=== PATIENT | female | born 1990 | race American Indian/Alaskan Native ===

== ENCOUNTER 2021-02-04 12:26 | Outpatient (CLI) | payer OTHER ==
[2021-02-04 12:51] VITALS: BP 106/75
[2021-02-04] MEDS ORDERED: LACTATED RINGERS 1,000 ML IV ONE (13:34)
--- NOTE | 2021-02-04 13:45 | Ultrasound Report ---
ULTRASOUND OB LIMITED ULTRASOUND OB BPP ULTRASOUND OB BPP EA ADD EXAM INDICATION: WELL BEING;NNST TWINS TECHNIQUE: Transabdominal ultrasound imaging. COMPARISON: None FINDINGS: BABY A breathing movement = 2 Gross body movement = 2 tone = 2 Qualitative amniotic fluid volume = 2 Total biophysical score = 8/8 Amniotic fluid index is within normal limits. Largest vertical pocket measures 5.1 cm. Presentation is cephalic. heart rate is 141 beats per minute. BABY B breathing movement = 2 Gross body movement = 2 tone = 2 Qualitative amniotic fluid volume = 2 Total biophysical score = 8/8 Amniotic fluid index is within normal limits. Largest vertical pocket measures 4.3 cm. Presentation is cephalic. heart rate is 135 beats per minute. IMPRESSION: biophysical profile equals 8/8 for each fetus. Signer Name: Joe Nugyễn Jr, MD Signed: 02/04/2021 1:40 PM Workstation Name: [id number]
[2021-02-04 14:36] LABS: Bilirubin,Urine NEG (Negative); Blood,Urine MOD (Negative); Color,Urine Yellow (Yellow); Protein,Urine <15 mg/dL mg/dL (Negative); Urobilinogen,Urine < 2.0 mg/dL (<2.0)
== END 2021-02-04 14:00 | disposition home or self-care (01) ==
LOC: TRG 12:26 → APU 12:28 → TRG 14:00
PROVIDERS: ATTEND Obstetrics & Gynecology
DX: O30.043 Twin pregnancy, dichorionic/diamniotic, third trimester (principal); Z3A.33 33 weeks gestation of pregnancy
CPT/HCPCS: 76815; 76819; 81001

== ENCOUNTER 2021-02-11 18:57 | Outpatient (CLI) | payer OTHER ==
[2021-02-11 19:24] VITALS: BP 137/63
[2021-02-11] MEDS ORDERED: LACTATED RINGERS 500 ML IV ONE (20:04)
--- NOTE | 2021-02-11 22:42 | Ultrasound Report ---
ULTRASOUND BIOPHYSICAL PROFILE INDICATION: well being. COMPARISON: 02/04/2021 FINDINGS: Twin A breathing movement = 2 Gross body movement = 2 tone = 2 Qualitative amniotic fluid volume = 2 Total biophysical score = /8 Heart rate: 128 bpm. lie: Cephalic, on the maternal left Twin B breathing movement = 2 Gross body movement = 2 tone = 2 Qualitative amniotic fluid volume = 2 Total biophysical score = /8 Heart rate: 138. lie: Transverse head left, on the maternal right IMPRESSION: Twin A biophysical profile = 01/11 Twin B biophysical profile = / Signer Name: Abilio Allen MD Signed: 02/11/2021 10:37 PM Workstation Name: [id number]
== END 2021-02-11 21:28 | disposition home or self-care (01) ==
LOC: TRG 18:57 → APU 18:59 → TRG 21:28
PROVIDERS: ATTEND Obstetrics & Gynecology
DX: O30.043 Twin pregnancy, dichorionic/diamniotic, third trimester (principal); Z3A.34 34 weeks gestation of pregnancy
CPT/HCPCS: 59025; 76819

== ENCOUNTER 2021-02-20 11:31 | Outpatient (CLI) | payer OTHER ==
[2021-02-20 12:19] VITALS: BP 122/88
[2021-02-20] MEDS ORDERED: LACTATED RINGERS 500 ML IV ONE (14:45)
--- NOTE | 2021-02-20 18:33 | Ultrasound Report ---
Limited OB Ultrasound Biophysical profile HISTORY: well being, twin gestation. TECHNIQUE: Grayscale and color imaging performed. COMPARISON: 02/11/2021 and 02/04/2021 FINDINGS: This is a twin . Fetus A is cephalic in presentation with overall EGA by ultrasound 34 weeks and 2 days compared to cl inically 36 weeks and 1 day. Estimated delivery date is 04/01/2021. Estimate of weight is 2258 g. Heart rate is 129 bpm. Largest vertical pocket ESMER is 4 cm. Fetus B is cephalic in presentation with overall EGA by ultrasound 34 weeks and 6 days compared to cl inically 36 weeks and 1 day. Estimated delivery date is 03/28/2021. Estimated weight is 2629 g. Heart rate is 145 bpm. Largest vertical pocket ESMER is 4 cm. On biophysical profile, each fetus received a score of 2 out of 2 for breathing, movement, posture/to ne, and ESMER. Total score was 8 out of 8 for each fetus. IMPRESSION: 1. Twin gestations as above. 2. Normal biophysical profiles for each fetus Signer Name: Cuco Sauceda MD Signed: 02/20/2021 6:29 PM Workstation Name: [id number]
--- NOTE | 2021-02-20 18:33 | Ultrasound Report ---
Limited OB Ultrasound Biophysical profile HISTORY: well being, twin gestation. TECHNIQUE: Grayscale and color imaging performed. COMPARISON: 02/11/2021 and 02/04/2021 FINDINGS: This is a twin . Fetus A is cephalic in presentation with overall EGA by ultrasound 34 weeks and 2 days compared to cl inically 36 weeks and 1 day. Estimated delivery date is 04/01/2021. Estimate of weight is 2258 g. Heart rate is 129 bpm. Largest vertical pocket ESMER is 4 cm. Fetus B is cephalic in presentation with overall EGA by ultrasound 34 weeks and 6 days compared to cl inically 36 weeks and 1 day. Estimated delivery date is 03/28/2021. Estimated weight is 2629 g. Heart rate is 145 bpm. Largest vertical pocket ESMER is 4 cm. On biophysical profile, each fetus received a score of 2 out of 2 for breathing, movement, posture/to ne, and ESEMR. Total score was 8 out of 8 for each fetus. IMPRESSION: 1. Twin gestations as above. 2. Normal biophysical profiles for each fetus Signer Name: Cuco Sauceda MD Signed: 02/20/2021 6:29 PM Workstation Name: [email or web address]
== END 2021-02-20 14:10 | disposition home or self-care (01) ==
LOC: TRG 11:31 → APU 11:32 → TRG 14:10
PROVIDERS: ATTEND Obstetrics & Gynecology
DX: O30.043 Twin pregnancy, dichorionic/diamniotic, third trimester (principal); Z3A.00 Weeks of gestation of pregnancy not specified
CPT/HCPCS: 59025; 76816; 76819

== ENCOUNTER 2021-02-27 10:24 | Outpatient (CLI) | payer OTHER ==
--- NOTE | 2021-02-27 13:41 | Ultrasound Report ---
ULTRASOUND OBSTETRIC LIMITED ULTRASOUND BIOPHYSICAL PROFILE INDICATION / CLINICAL INFORMATION: wellbeing. COMPARISON: None available. FINDINGS: BABY A: BREATHING MOVEMENT = 2 GROSS BODY MOVEMENT = 2 TONE = 2 QUALITATIVE AMNIOTIC FLUID VOLUME = 2 TOTAL BIOPHYSICAL SCORE = 8/8 AMNIOTIC FLUID INDEX (cm) = The largest vertical pocket measures 4.5 cm, which is normal. PRESENTATION: Cephalic. HEART RATE (beats per minute): 143 ADDITIONAL FINDINGS: None. BABY B: BREATHING MOVEMENT = 2 GROSS BODY MOVEMENT = 2 TONE = 2 QUALITATIVE AMNIOTIC FLUID VOLUME = 2 TOTAL BIOPHYSICAL SCORE = 8/8 AMNIOTIC FLUID INDEX (cm) = The largest vertical pocket measures 2.1 cm, which is at the lower limit of normal. PRESENTATION: Cephalic. HEART RATE (beats per minute): 151 ADDITIONAL FINDINGS: None. IMPRESSION: Live twin with biophysical profile score of 8/8. Signer Name: Kvng Lambert MD Signed: 02/27/2021 1:37 PM Workstation Name: [id number]
--- NOTE | 2021-02-27 13:44 | Ultrasound Report ---
US OB BPP wo non-stress INDICATION / CLINICAL INFORMATION: wellbeing. TECHNIQUE: Transabdominal. COMPARISON: None available. FINDINGS: Biophysical Profile: breathing movements: 2 movements:2 posture and tone:2 Qualitative amniotic fluid volume: 2 Heart rate 143 bpm. IMPRESSION: 1. Biophysical profile of fetus A is 8 of 8 Signer Name: Sotero Stein MD Signed: 02/27/2021 1:40 PM [facility]: [id number]
[2021-02-27 14:18] VITALS: BP 128/71
--- NOTE | 2021-02-27 18:25 | Ultrasound Report ---
US OB limited INDICATION: Bpp, ESMER. TECHNIQUE: Transabdominal. COMPARISON: None available. FINDINGS/IMPRESSION: There is a intrauterine twin . Fetus A: Position: Cephalic. heart rate 143 bpm. Largest pocket of amniotic fluid is 4.1 cm, which is normal. Fetus B: Position: Cephalic. heart rate 151 bpm. Largest pocket of amniotic fluid is 1.1 cm, which is low limits of normal. Signer Name: Sotero Stein MD Signed: 02/27/2021 6:20 PM Workstation Name: [id number]
== END 2021-02-27 14:00 | disposition home or self-care (01) ==
LOC: TRG 10:24 → APU 10:25 → TRG 14:00
PROVIDERS: ATTEND Student in an Organized Health Care Education/Training Program
DX: Z34.93 Encounter for supervision of normal pregnancy, unspecified, third trimester (principal); Z3A.37 37 weeks gestation of pregnancy
CPT/HCPCS: 59025; 76815; 76819

== ENCOUNTER 2021-03-06 11:50 | Inpatient (IN) | payer OTHER ==
--- NOTE | 2021-03-06 15:19 | Ultrasound Report ---
ULTRASOUND OBSTETRIC LIMITED ULTRASOUND BIOPHYSICAL PROFILE INDICATION / CLINICAL INFORMATION: TWIN GESTATION, WEEKLY BPP. COMPARISON: 02/27/2021 FINDINGS: BABY A: BREATHING MOVEMENT = 2 GROSS BODY MOVEMENT = 2 TONE = 2 QUALITATIVE AMNIOTIC FLUID VOLUME = 2 TOTAL BIOPHYSICAL SCORE = 8/8 AMNIOTIC FLUID INDEX (cm) = The largest vertical pocket measures 5.1 cm, which is normal. PRESENTATION: Cephalic. HEART RATE (beats per minute): 139 ADDITIONAL FINDINGS: None. BABY B: BREATHING MOVEMENT = 0 GROSS BODY MOVEMENT = 2 TONE = 2 QUALITATIVE AMNIOTIC FLUID VOLUME = 2 TOTAL BIOPHYSICAL SCORE = 6/8 AMNIOTIC FLUID INDEX (cm) = The largest vertical pocket measures 3.1 cm, which is within normal limi ts. PRESENTATION: Cephalic. HEART RATE (beats per minute): 134 ADDITIONAL FINDINGS: None. IMPRESSION: 1. Live twin . Biophysical profile score of 6/8 for "baby B" with limited breathing movement . Close clinical surveillance is recommended. 2. Biophysical profile score of 8/8 for "baby A". Signer Name: Arun Reaves MD Signed: 03/06/2021 3:14 PM Workstation Name: [id number]
--- NOTE | 2021-03-06 16:01 | History and Physical Report ---
History of Present Illness Date of examination: 03/06/21 Chief complaint: Pt sent from office after variables noted on NST and pt having contractions; Admitted for IOL d/t BPP 11/11 Baby B. Both babies cephalic. History of present illness: EDC Confirmation: 03/19/2021 Past History : 6 Term Births: 2 Living Children: 2 Para: 2 Elect. Ab: 2 Spont. Ab: 1 # 1 Delivery date: 2007 Weeks Gestation: FT Delivery type: Delivery location: ID Infant Sex: Male weight: 6-14 Comments: Pre E- dx day of delivery. s/p magnesium # 2 Delivery date: 2016 Weeks Gestation: FT Delivery type: Infant Sex: Female weight: 6 Past Medical History: Reviewed and updated today: Negative Past Medical History Past Surgical History: Reviewed and updated today: oral sx General Comments - FH: DM HTN Social History: no E/T/D Risk Factors: Smoked Tobacco Use: Never smoker Smokeless Tobacco Use: Never Passive Smoke Exposure: no HIV High Risk Behavior: no Seatbelt Use: 100 % PAP Smear History: Date of Last PAP Smear: 09/04/2020 Results: normal Past Medical History Surgery (Non-legal contracts specialist): oral sx Medical History Comments: negatve Family Hx: DM HTN Social Hx: no E/T/D Infection History HIV Risk Eval: no Partner hx. of genital herpes: no Varicella/Chicken Pox Status: Previous Disease Genetic History Congenital Heart Defect: Mom: no Dad: no Uyen Disease: Mom: no Dad: no Thalassemia Mom: no Dad: no Neural Tube Defect Mom: no Dad: no Down's Syndrome Mom: no Dad: no Hernán-Sachs Mom: no Dad: no Sickle Cell Disease/Trait Mom: no Dad: no Hemophilia Mom: no Dad: no Muscular Dystrophy Mom: no Dad: no Cystic Fibrosis Mom: no Dad: no [place] Chorea Mom: no Dad: no Mental Retardation Mom: no Dad: no Fragile X Mom: no Dad: no Other Genetic/Chromosomal Disorder Mom: no Dad: no Child w/other defect Mom: no Dad: no Enviromental Exposures Xray Exposure: no Medication, drug, or alcohol use since LMP: no Chemical/Other Exposure: no Exposure to Cat Liter: no Hx of Parvovirus (Fifth Disease): no Occupational Exposure to Children: none Current Allergies (reviewed today): No known allergies Past History Past Medical History: other (See HPI) Past Surgical History: other (See HPI) [employer] W[employer]OR History: other (See HPI) Family/Genetic History: other (See HPI) Social history: other (See HPI) - Obstetrical History Expected Date of Delivery: 03/19/21 Actual Gestation: 38 Week(s) 1 Day(s) : 6 Para: 2 Hx # Term Pregnancies: 2 Number of Pregnancies: 0 Spontaneous Abortions: 1 Induced : 2 Number of Living Children: 2 Medications and Allergies Allergies Allergy/AdvReac Type Severity Reaction Status Date / Time No Known Allergies Allergy Verified 02/27/21 10:41 Review of Systems All systems: negative - Vital Signs Vital signs: Vital Signs Pulse Pulse Ox 78 96 03/06/21 12:47 03/06/21 12:47 Temp Pulse Resp BP Pulse Ox 98.3 F 89 18 127/71 98 03/06/21 12:55 03/06/21 13:27 03/06/21 12:55 03/06/21 12:55 03/06/21 13:27 - Physical Exam Cardiovascular: Regular rate Lungs: Positive: Normal air movement Abdomen: Positive: normal appearance, soft, normal bowel sounds. Negative: distention, tenderness Vulva: both: normal Vagina: Positive: normal moisture. Negative: discharge Extremities: Positive: normal Deep Tendon Reflex Grade: Normal +2 - Obstetrical FHR: auscultation normal Uterine Contraction Monitor Mode: External Cervical Dilatation: 4 (Per scarfing machine operator) Uterine Contraction Pattern: Irregular Uterine Tone Measurement Phase: Resting Uterine Contraction Intensity: Mild Results All other labs normal. Assessment and Plan 30yo w/ DI-DI twins at 38+1, being admitted for IOL, NST in office nonreactive, BPP Baby A 01/11, Baby B 11/11. gbs +, admission orders in EMR - Patient Problems (1) 38 weeks gestation of Current Visit: Yes Status: Acute (2) Dichorionic diamniotic twin gestation Current Visit: Yes Status: Acute Qualifiers: Trimester: third trimester Qualified Code(s): O30.043 - Twin , dichorionic/diamniotic, third trimester Plan to address problem: Continuous monitoring (3) GBS (group B Streptococcus carrier), +RV culture, currently Current Visit: Yes Status: Acute Plan to address problem: Ampicillin q4hrs until delivery
[2021-03-06] MEDS ORDERED: MINERAL OIL 30 ML ORAL LIQD PO PRN (16:07)
[2021-03-06] MEDS ORDERED: METHYLERGONOVINE MALEATE 0.2 MG/ML VIAL IM PRN (16:07)
[2021-03-06] MEDS ORDERED: LIDOCAINE (2%) 20 MG/1 ML VIAL 20 ML MDV INFILTRATI ONE (16:07)
[2021-03-06] MEDS ORDERED: OXYTOCIN 10 UNIT/1 ML INJ IM PRN (16:07)
[2021-03-06] MEDS ORDERED: fentaNYL 100 MCG/2 ML INJ IV PRN (16:07)
[2021-03-06] MEDS ORDERED: ACETAMINOPHEN 325 MG TAB PO PRN (16:07)
[2021-03-06] MEDS ORDERED: TERBUTALINE 1 MG/1 ML INJ SUB-Q PRN (16:07)
[2021-03-06] MEDS ORDERED: ONDANSETRON 4 MG/2 ML INJ IV PRN (16:07)
[2021-03-06] MEDS ORDERED: miSOPROStol 200 MCG TAB PR PRN (16:07)
[2021-03-06] MEDS ORDERED: AMPICILLIN/NS 2 GM/100 ML 2 GM/100 ML BAG IV ONE ×2 (16:07→21:30)
[2021-03-06] MEDS ORDERED: CARBOPROST TROMETHAMINE 250 MCG/1 ML INJ IM PRN (16:07)
[2021-03-06] MEDS ORDERED: LOPERAMIDE 2 MG CAP PO PRN (16:07)
[2021-03-06] MEDS ORDERED: ePHEDrine SULFATE 50 MG/1 ML INJ IV PRN (16:07)
[2021-03-06] MEDS ORDERED: BUTORPHANOL 2 MG/1 ML INJ IV PRN ×2 (16:07)
[2021-03-06] MEDS ORDERED: OXYTOCIN DRIP 30 UNITS/500 ML BAG IV SCH ×2 (17:00)
[2021-03-06] MEDS: LACTATED RINGERS 1,000 ML IV SCH (19:28)
--- NOTE | 2021-03-06 19:40 | Progress Note ---
Assessment and Plan A: 30 y.o. @ 38.1 wks, twin gestation, IOL. Cervical exam /-2. P: Will start Pitocin. Continue to monitor babies with EFW. IV bolus started for epidural placement. Anticipate . Subjective - Subjective Date of service: 03/06/21 (Plan of Care) Principal diagnosis: IUP, twin gestation @ 38.1 wks, IOL Patient reports: movement normal (X2), contractions Objective - Vital Signs Vital Signs: Vital Signs - 12hr 03/06/21 03/06/21 03/06/21 12:47 12:48 12:52 Temperature Pulse Rate 78 83 96 H Respiratory Rate Blood Pressure 127/71 Blood Pressure [Right] O2 Sat by Pulse 96 97 Oximetry 03/06/21 03/06/21 03/06/21 12:55 12:57 13:02 Temperature 98.3 F Pulse Rate 121 H 122 H 93 H Respiratory 18 Rate Blood Pressure Blood Pressure 127/71 [Right] O2 Sat by Pulse 98 97 99 Oximetry 03/06/21 03/06/21 03/06/21 13:07 13:12 13:17 Temperature Pulse Rate 74 76 96 H Respiratory Rate Blood Pressure Blood Pressure [Right] O2 Sat by Pulse 97 97 98 Oximetry 03/06/21 03/06/21 13:22 13:27 Temperature Pulse Rate 90 89 Respiratory Rate Blood Pressure Blood Pressure [Right] O2 Sat by Pulse 97 98 Oximetry - Exam Breasts: deferred Cardiovascular: Regular rate Lungs: Normal air movement Abdomen: Present: normal appearance, soft Vulva: both: normal Uterus: Present: normal FHR: category 1 (X2) Uterine Contraction Monitor Mode: External Cervical Dilatation: 4 Cervical Effacement Percentage: 50 station: -2 Uterine Contraction Pattern: Regular Uterine Tone Measurement Phase: Resting Uterine Contraction Intensity: Mild Extremities: normal
[2021-03-06 19:43] LABS: Hematocrit 34.5 % (30.3-42.9); Hemoglobin 12.2 gm/dl (10.1-14.3); Mean Corpuscular HGB Conc 35 % (30-34); Mean Corpuscular Volume 97 fl (79-97); Platelet Count 139 K/mm3 (140-440); Red Blood Count 3.55 M/mm3 (3.65-5.03); Red Cell Distribution Width 15.1 % (13.2-15.2)
[2021-03-06] MEDS ORDERED: AMPICILLIN/NS 1 GM/50 ML 1 GM/50 ML BAG IV SCH (21:00)
[2021-03-07] MEDS ORDERED: AMPICILLIN/NS 1 GM/50 ML 1 GM/50 ML BAG IV SCH (02:00)
--- NOTE | 2021-03-07 02:14 | Progress Note ---
Assessment and Plan A: 30 y.o. 38.2 wks, twin gestation, IOL. SROM clear fluid. Cervical exam 50/- 2. P: IV fluid bolus for epidural placement. Continue with Pitocin as ordered. Anticipate . Subjective - Subjective Date of service: 03/07/21 Principal diagnosis: IUP, twin gestation @ 38.1 wks, IOL SROM clear fluid Patient reports: loss of fluid (SROM for clear fluid.), movement normal (X2), contractions Objective - Vital Signs Vital Signs: Vital Signs - 12hr 03/06/21 03/06/21 03/06/21 20:00 20:03 20:05 Temperature 98.4 F Pulse Rate 71 Respiratory 20 Rate Blood Pressure 129/73 O2 Sat by Pulse 89 99 Oximetry O2 Sat by Pulse Oximetry [ Bilateral Throughout] 03/06/21 03/06/21 03/06/21 20:06 20:08 20:13 Temperature Pulse Rate 77 67 Respiratory Rate Blood Pressure O2 Sat by Pulse 100 99 Oximetry O2 Sat by Pulse 99 Oximetry [ Bilateral Throughout] 03/06/21 03/06/21 03/06/21 20:18 20:23 20:28 Temperature Pulse Rate 76 69 84 Respiratory Rate Blood Pressure O2 Sat by Pulse 99 100 100 Oximetry O2 Sat by Pulse Oximetry [ Bilateral Throughout] 03/06/21 03/06/21 03/06/21 20:33 20:38 20:43 Temperature Pulse Rate 70 72 79 Respiratory Rate Blood Pressure O2 Sat by Pulse 100 99 100 Oximetry O2 Sat by Pulse Oximetry [ Bilateral Throughout] 03/06/21 03/06/21 03/06/21 20:48 20:53 20:58 Temperature Pulse Rate 69 76 74 Respiratory Rate Blood Pressure O2 Sat by Pulse 100 99 100 Oximetry O2 Sat by Pulse Oximetry [ Bilateral Throughout] 03/06/21 03/06/21 03/06/21 21:03 21:08 21:13 Temperature Pulse Rate 73 67 74 Respiratory Rate Blood Pressure O2 Sat by Pulse 100 100 100 Oximetry O2 Sat by Pulse Oximetry [ Bilateral Throughout] 03/06/21 03/06/21 03/06/21 21:18 21:23 21:28 Temperature Pulse Rate 72 65 73 Respiratory Rate Blood Pressure O2 Sat by Pulse 99 100 100 Oximetry O2 Sat by Pulse Oximetry [ Bilateral Throughout] 03/06/21 03/06/2103/06/21 21:33 21:38 21:43 Temperature Pulse Rate 63 73 70 Respiratory Rate Blood Pressure O2 Sat by Pulse 100 99 100 Oximetry O2 Sat by Pulse Oximetry [ Bilateral Throughout] 03/06/21 03/06/21 03/06/21 21:48 21:53 22:03 Temperature Pulse Rate 96 H 70 70 Respiratory Rate Blood Pressure O2 Sat by Pulse 99 99 100 Oximetry O2 Sat by Pulse Oximetry [ Bilateral Throughout] 03/06/21 03/06/21 03/06/21 22:08 22:13 22:18 Temperature Pulse Rate 62 70 74 Respiratory Rate Blood Pressure O2 Sat by Pulse 99 99 99 Oximetry O2 Sat by Pulse Oximetry [ Bilateral Throughout] 03/06/21 03/06/21 03/06/21 22:23 22:28 22:33 Temperature Pulse Rate 66 67 70 Respiratory Rate Blood Pressure O2 Sat by Pulse 99 99 100 Oximetry O2 Sat by Pulse Oximetry [ Bilateral Throughout] 03/06/21 03/06/21 03/06/21 22:38 22:43 22:48 Temperature Pulse Rate 62 65 64 Respiratory Rate Blood Pressure O2 Sat by Pulse 99 100 100 Oximetry O2 Sat by Pulse Oximetry [ Bilateral Throughout] 03/06/21 03/06/21 03/06/21 22:53 22:58 23:03 Temperature Pulse Rate 66 69 77 Respiratory Rate Blood Pressure O2 Sat by Pulse 99 100 99 Oximetry O2 Sat by Pulse Oximetry [ Bilateral Throughout] 03/06/21 03/06/21 03/06/21 23:08 23:09 23:13 Temperature Pulse Rate 69 71 65 Respiratory Rate Blood Pressure O2 Sat by Pulse 99 92 100 Oximetry O2 Sat by Pulse Oximetry [ Bilateral Throughout] 03/06/21 03/06/21 03/06/21 23:18 23:23 23:28 Temperature Pulse Rate 68 67 67 Respiratory Rate Blood Pressure O2 Sat by Pulse 100 98 100 Oximetry O2 Sat by Pulse Oximetry [ Bilateral Throughout] 03/06/21 03/06/21 03/06/21 23:33 23:38 23:43 Temperature Pulse Rate 60 69 67 Respiratory Rate Blood Pressure O2 Sat by Pulse 98 100 100 Oximetry O2 Sat by Pulse Oximetry [ Bilateral Throughout] 03/06/21 03/06/21 03/06/21 23:48 23:53 23:58 Temperature Pulse Rate 74 60 64 Respiratory Rate Blood Pressure O2 Sat by Pulse 100 100 100 Oximetry O2 Sat by Pulse Oximetry [ Bilateral Throughout] 03/07/21 03/07/21 03/07/21 00:03 00:08 00:13 Temperature Pulse Rate 91 H 61 69 Respiratory Rate Blood Pressure O2 Sat by Pulse 100 100 99 Oximetry O2 Sat by Pulse Oximetry [ Bilateral Throughout] 03/07/21 03/07/21 03/07/21 00:18 00:23 00:28 Temperature Pulse Rate 69 65 67 Respiratory Rate Blood Pressure O2 Sat by Pulse 98 100 100 Oximetry O2 Sat by Pulse Oximetry [ Bilateral Throughout] 03/07/21 03/07/21 03/07/21 00:33 00:38 00:43 Temperature Pulse Rate 63 70 80 Respiratory Rate Blood Pressure O2 Sat by Pulse 100 100 99 Oximetry O2 Sat by Pulse Oximetry [ Bilateral Throughout] 03/07/21 03/07/21 03/07/21 00:48 00:53 00:58 Temperature Pulse Rate 73 74 69 Respiratory Rate Blood Pressure O2 Sat by Pulse 98 99 99 Oximetry O2 Sat by Pulse Oximetry [ Bilateral Throughout] 03/07/21 03/07/21 03/07/21 01:03 01:08 01:13 Temperature Pulse Rate 72 70 75 Respiratory Rate Blood Pressure O2 Sat by Pulse 100 100 98 Oximetry O2 Sat by Pulse Oximetry [ Bilateral Throughout] 03/07/21 03/07/21 03/07/21 01:18 01:23 01:28 Temperature Pulse Rate 76 71 72 Respiratory Rate Blood Pressure O2 Sat by Pulse 99 100 100 Oximetry O2 Sat by Pulse Oximetry [ Bilateral Throughout] 03/07/21 03/07/21 03/07/21 01:33 01:38 01:43 Temperature Pulse Rate 60 60 59 L Respiratory Rate Blood Pressure O2 Sat by Pulse 99 100 99 Oximetry O2 Sat by Pulse Oximetry [ Bilateral Throughout] 03/07/21 03/07/21 03/07/21 01:48 01:53 01:58 Temperature Pulse Rate 63 73 66 Respiratory Rate Blood Pressure O2 Sat by Pulse 99 99 100 Oximetry O2 Sat by Pulse Oximetry [ Bilateral Throughout] 03/07/21 03/07/21 02:03 02:08 Temperature Pulse Rate 65 72 Respiratory Rate Blood Pressure O2 Sat by Pulse 100 99 Oximetry O2 Sat by Pulse Oximetry [ Bilateral Throughout] - Exam Narrative Exam: Was called by RN d/t pt having SROM for clear fluids. Upon assessment there was a large amount of clear fluid on the peripad underneath the patient. Cervical exam 450/-2. Pt requesting an epidural. IV fluid bolus started. Abdomen: Present: normal appearance, soft Vulva: both: normal Uterus: Present: normal FHR: category 1 (X2) Cervical Dilatation: 4 (SROM clear fluid.) Cervical Effacement Percentage: 50 station: -2 Uterine Contraction Pattern: Regular Uterine Tone Measurement Phase: Resting Uterine Contraction Intensity: Moderate - Labs Labs: Abnormal Labs 03/06/21 19:00 RBC 3.55 L MCH 34 H MCHC 35 H Plt Count 139 L Laboratory Results - last 24 hr 03/06/21 03/06/21 03/06/21 19:00 19:00 19:00 WBC 6.8 RBC 3.55 L Hgb 12.2 Hct 34.5 MCV 97 MCH 34 H MCHC 35 H RDW 15.1 Plt Count 139 L Syphilis IgG Antibody Nonreactive Blood Type A POSITIVE Antibody Screen Negative
[2021-03-07] MEDS: LACTATED RINGERS 1,000 ML IV SCH (02:18)
[2021-03-07] MEDS ORDERED: NALOXONE 2 MG/2 ML INJ IV PRN (02:56)
[2021-03-07] MEDS ORDERED: ePHEDrine SULFATE 50 MG/1 ML INJ IV PRN (02:56)
--- NOTE | 2021-03-07 02:56 | Anesthesia Consultation ---
Anesthesia Consult and Med Hx Date of service: 03/07/21 - Airway Anesthetic Teeth Evaluation: Good ROM Head & Neck: Adequate Mental/Hyoid Distance: Adequate Mallampati Class: Class II Intubation Access Assessment: Probably Good - Pulmonary Exam CTA: Yes - Cardiac Exam Cardiac Exam: RRR - Pre-Operative Health Status ASA Pre-Surgery Classification: ASA2 Proposed Anesthetic Plan: Epidural - Pulmonary Hx Asthma: No - Cardiovascular System Hx Hypertension: No - Central Nervous System Hx Seizures: No Hx Psychiatric Problems: No - Endocrine Hx Renal Disease: No Hx Hypothyroidism: No Hx Hyperthyroidism: No - Hematic Hx Anemia: No Hx Sickle Cell Disease: No - Other Systems Hx Alcohol Use: No
[2021-03-07] MEDS ORDERED: FAMOTIDINE 20 MG TAB PO SCH ×2 (03:00→10:00)
[2021-03-07] MEDS ORDERED: fentaNYL-BUPIV 2 MCG/ML-0.125% 200 MCG/100 ML BAG EPIDURAL SCH (03:00)
--- NOTE | 2021-03-07 03:16 | Progress Note ---
Labor Epidural - Labor Epidural Start Time: 03:04 Stop Time: 03:09 Performed by:: BERNY VELASCO Procedure: Patient is requesting epidural for labor pain. H&P, and labs reviewed. Procedure explained, questions answered, consent obtained. Patient in sitting position with blood pressure cuff and pulse ox on and working. Timeout performed immediately before start of procedure. Sterile chlorahexadine 0.5% prep/drape. 3 mL 1% lidocaine skin wheal at L[3]-L[4]. 17-gauge tuohy epidural needle advanced to [id number] with saline at [7] cm. 25-gauge spinal needle advanced until clear, free-flowing CSF. Intrathecal dexmedetomidine [5] mcg administered and needle removed. Epidural catheter advanced to [12] cm, negative aspiration for blood and csf, negative test dose 3 ml 1.5% lidocaine with epinephrine. Sterile sponge and tegaderm applied, followed by tape reinforcement. Patient tolerated procedure well.
[2021-03-07] MEDS ORDERED: FAMOTIDINE 20 MG/2 ML INJ IV ONE (03:42)
[2021-03-07] MEDS ORDERED: METOCLOPRAMIDE 10 MG/2 ML INJ ONE (03:42)
[2021-03-07] MEDS ORDERED: BICITRA ORAL LIQD 30ML ONE (03:42)
[2021-03-07] MEDS ORDERED: SODIUM CHLORIDE 0.9% IRR 1,500 ML BOTTLE IR ONE (04:05)
[2021-03-07] MEDS ORDERED: WATER FOR IRRIG STERILE 1,500 ML BOTTLE IR ONE (04:05)
[2021-03-07] MEDS ORDERED: LIDOCAINE 2%/EPINEPHRINE 1:200,000 VIAL (20 ML) INFILTRATI ONE (04:16)
[2021-03-07] MEDS ORDERED: KETOROLAC 30 MG/1 ML INJ ONE (04:16)
[2021-03-07] MEDS ORDERED: dexAMETHasone 20 MG/5 ML VIAL ONE (04:16)
[2021-03-07] MEDS ORDERED: BUPIVACAINE/PF (0.5%) 5 MG/1 ML 30 ML VIAL INFILTRATI ONE (04:16)
[2021-03-07] MEDS ORDERED: SODIUM BICARB 8.4% 50 MEQ/50 ML VIAL IV ONE (04:16)
[2021-03-07] MEDS ORDERED: ePHEDrine SULFATE 50 MG/1 ML INJ ONE (04:40)
[2021-03-07] MEDS ORDERED: LACTATED RINGERS 1,000 ML ONE (04:40)
--- NOTE | 2021-03-07 04:47 | Procedure Note ---
OB Delivery Note - Chainstitch Hemmer: RAUL WASHBURN - Vaginal Delivery presentation: vertex Delivery position: OA Delivery induction: oxytocin Delivery monitor: external FHT, external uterine Route of delivery: Delivery placenta: spontaneous Episiotomy: none Delivery laceration: none Anesthesia: epidural Delivery comments: Dr. Riley available for delivery. of viable Twin A male infant. to mother's abdomen for skin to skin. Cord cut and clamped with one cord clamp. handed to JASMYNE nurse for evaluation. Infant weight 5-0. Apgars 8,9. No lacerations noted. Cervical exam after delivery of twin A: 6/100/0, Twin B breech presentation, feet felt in the vagina. Pt opted not to try and delivery twin B vaginally. sr. manager, OB/OR tech aware. Pt prepped for . - A at 1 minute: 8 at 5 minutes: 9 Gender: Male (Twin A: Weight 5-0.)
--- NOTE | 2021-03-07 05:32 | Operative Report ---
Operative Report Operative Report: Date of operation: 03/07/2021 Pre-operative diagnosis: 1. Intrauterine at 38 weeks gestational age 2. Dichorionic diamniotic twin gestation 3. Breech presentation twin B patient desired to proceed with delivery 4. BMI 34.7 kg/m 5. Group beta Streptococcus carrier Post-operative diagnosis: 1. 38 weeks gestational age 2. Dichorionic diamniotic twin gestation 3. Breech presentation twin B patient desired to proceed with delivery 4. BMI 34.7 kg/m 5. Group beta Streptococcus carrier Procedure name(s): Primary low transverse uterine incision Surgeon: Justina Riley MD [employer] Attendant: Na Love CNM Anesthesia: Epidural QBL: Not available at the time of this dictation Urine output: 100 mL of clear urine out at the end of the procedure Fluids: 1000 mL Findings: Liveborn male infant weight 6 Lbs. 3 oz. Footling breech. Apgars of 8 and 9 at one and 5 minutes Indications: Patient had delivery of Twin A . Malpresentation of Twin B was palpated and confirmed with bedside US. Breech delivery discussed, she desired to proceed with delivery. Procedure: Patient was taking to the operating room. Epidural anesthesia was bolused. Patient was then prepped and draped in the usual sterile fashion Timeout was performed. Once an appropriate level of anesthesia was noted, a Pfannenstiel incision was made and extended the fascia which was incised and extended lateral direction. The overlying fascia was sharply dissected away from the underlying rectus muscles in the superior inferior direction. The midline was entered bluntly. Bladder blade was placed. Vesicouterine fold was incised with blunt dissection bladder flap was created. A transverse incision was made in the lower uterine segment and extended superolateral direction with finger fractionation. Clear fluid was noted. was delivered from the breech position, with spontaneous cry and excellent tone. Nuchal cord x2 was noted and reduced with delivery. Mouth and nose bulb suctioned. Cord was doubly clamped and cut infant was given to the resuscitation team present. Both placentas were delivered. The uterus was exteriorized and cleaned of any further placental tissue and products of conception. Uterine incision was approximated using 0 Vicryl in a running interlocking stitch followed by further suture of 0 Vicryl in imbricating fashion. When hemostasis was noted the uterus was allowed back in the pelvic cavity. Pelvis was irrigat ed with warm normal saline. Once hemostasis was noted the rectus muscles were approximated using 0 Vicryl interrupted simple stitches 3. Once hemostasis was noted the fascia was approximated using 0 Vicryl simple running stitch. The incision was irrigated with warm saline, once hemostasis as noted, the subcuticular adipose tissue was reapproximated using 3-0 Vicryl in a simple running fashion. Skin was approximated using 4-0 Vicryl on a Gold needle in a subcuticular manner. Counts were correct x3. Patient tolerated the procedure well, she was taken to recovery room in stable condition.
[2021-03-07] MEDS ORDERED: METOCLOPRAMIDE 10 MG/2 ML INJ IV SCH (06:00)
[2021-03-07] MEDS ORDERED: ceFAZolin/Water 2 GM/20 ML 2 GM/20 ML SYRINGE IV NR (06:00)
[2021-03-07] MEDS ORDERED: FAMOTIDINE 20 MG/2 ML INJ IV SCH (06:00)
[2021-03-07] MEDS ORDERED: BICITRA ORAL LIQD 30ML PO SCH (06:00)
[2021-03-07 07:41] LABS: Alanine Aminotransferase 10 units/L (7-56); Uric Acid 5.5 mg/dL (3.5-7.6)
--- NOTE | 2021-03-07 08:25 | Progress Note ---
Assessment and Plan BP retaken and WNL. Pt denies complaints at this time. POC d/w pt and RN at bedside. Questions encouraged and answered. Pt verbalizes understanding and agrees to POC. Plan to monitor BP on LND unit until 0900. Pt may transfer to mother baby if remains stable - Patient Problems (1) (normal spontaneous vaginal delivery) Current Visit: Yes Status: Acute (2) delivery indicated due to breech presentation Current Visit: Yes Status: Acute Plan to address problem: continue postoperative pathway Subjective - Subjective Date of service: 03/07/21 Principal diagnosis: recent postop CS delivered, baby a Patient reports: pain well controlled, other (coppola draining adequate amount of clear yellow urine to gravity), no nauseated : doing well Objective - Vital Signs Latest vital signs: Vital Signs Temp Pulse Resp BP BP Pulse Ox Pulse Ox 03/07/21 08:23 68 100 03/07/21 08:20 75 135/65 03/07/21 08:18 73 100 03/07/21 08:13 65 100 03/07/21 08:10 64 137/64 03/07/21 08:08 65 99 03/07/21 08:05 64 161/76 03/07/21 08:03 65 97 03/07/21 07:58 68 100 03/07/21 07:53 67 99 03/07/21 07:48 66 100 03/07/21 07:43 67 99 03/07/21 07:38 79 92 03/07/21 07:34 72 89 03/07/21 07:33 67 100 03/07/21 07:28 62 98 03/07/21 07:23 70 97 03/07/21 07:18 59 L 100 03/07/21 07:13 68 100 03/07/21 07:08 67 100 03/07/21 07:04 74 90 03/07/21 07:03 68 98 03/07/21 06:58 65 143/68 100 03/07/21 06:26 61 23 139/80 100 03/07/21 06:16 62 21 135/60 100 03/07/21 06:02 97.7 F 03/07/21 05:46 64 23 140/64 100 03/07/21 05:32 81 120/51 96 03/07/21 05:26 97.6 F 67 132/46 100 03/07/21 05:21 72 108/30 100 03/07/21 05:17 74 18 125/47 100 03/07/21 05:11 92 H 20 106/38 95 03/07/21 05:06 79 110/75 100 03/07/21 05:00 97.7 F 03/07/21 03:38 69 99 03/07/21 03:35 62 134/64 03/07/21 03:33 65 99 03/07/21 03:31 71 139/64 03/07/21 03:28 70 99 03/07/21 03:26 68 139/68 03/07/21 03:25 66 89 03/07/21 03:23 73 99 03/07/21 03:18 64 98 03/07/21 03:15 64 133/76 03/07/21 03:13 63 100 03/07/21 03:12 110 H 94 03/07/21 03:10 67 137/94 03/07/21 03:08 70 97 03/07/21 03:03 69 100 03/07/21 03:02 72 92 03/07/21 02:58 72 100 03/07/21 02:53 77 99 03/07/21 02:48 77 100 03/07/21 02:43 72 100 03/07/21 02:38 71 99 03/07/21 02:33 74 98 03/07/21 02:32 73 92 03/07/21 02:28 69 100 03/07/21 02:23 64 99 03/07/21 02:18 71 99 03/07/21 02:16 71 88 03/07/21 02:13 65 99 03/07/21 02:08 72 99 03/07/21 02:03 65 100 03/07/21 01:58 66 100 03/07/21 01:53 73 99 03/07/21 01:48 63 99 03/07/21 01:43 59 L 99 03/07/21 01:38 60 100 03/07/21 01:33 60 99 03/07/21 01:28 72 100 03/07/21 01:23 71 100 03/07/21 01:18 76 99 03/07/21 01:13 75 98 03/07/21 01:08 70 100 03/07/21 01:03 72 100 03/07/21 00:58 69 99 03/07/21 00:53 74 99 03/07/21 00:48 73 98 03/07/21 00:43 80 99 03/07/21 00:38 70 100 03/07/21 00:33 63 100 03/07/21 00:28 67 100 03/07/21 00:23 65 100 03/07/21 00:18 69 98 03/07/21 00:13 69 99 03/07/21 00:08 61 100 03/07/21 00:03 91 H 100 03/06/21 23:58 64 100 03/06/21 23:53 60 100 03/06/21 23:48 74 100 03/06/21 23:43 67 100 03/06/21 23:38 69 100 03/06/21 23:33 60 98 03/06/21 23:28 67 100 03/06/21 23:23 67 98 03/06/21 23:18 68 100 03/06/21 23:13 65 100 03/06/21 23:09 71 92 03/06/21 23:08 69 99 03/06/21 23:03 77 99 03/06/21 22:58 69 100 03/06/21 22:53 66 99 03/06/21 22:48 64 100 03/06/21 22:43 65 100 03/06/21 22:38 62 99 03/06/21 22:33 70 100 03/06/21 22:28 67 99 03/06/21 22:23 66 99 03/06/21 22:18 74 99 03/06/21 22:13 70 99 03/06/21 22:08 62 99 03/06/21 22:03 70 100 03/06/21 21:53 70 99 03/06/21 21:48 96 H 99 03/06/21 21:43 70 100 03/06/21 21:38 73 99 03/06/21 21:33 63 100 03/06/21 21:28 73 100 03/06/21 21:23 65 100 03/06/21 21:18 72 99 03/06/21 21:13 74 100 03/06/21 21:08 67 100 03/06/21 21:03 73 100 03/06/21 20:58 74 100 03/06/21 20:53 76 99 10/01/21 20:48 69 100 03/06/21 20:43 79 100 03/06/21 20:38 72 99 03/06/21 20:33 70 100 03/06/21 20:28 84 100 03/06/21 20:23 69 100 03/06/21 20:18 76 99 03/06/21 20:13 67 99 03/06/21 20:08 77 100 03/06/21 20:06 99 03/06/21 20:05 98.4 F 20 99 03/06/21 20:03 89 03/06/21 20:00 71 129/73 03/06/21 13:27 89 98 03/06/21 13:22 90 97 03/06/21 13:17 96 H 98 03/06/21 13:12 76 97 03/06/21 13:07 74 97 03/06/21 13:02 93 H 99 03/06/21 12:57 122 H 97 03/06/21 12:55 98.3 F 121 H 18 127/71 98 03/06/21 12:52 96 H 97 03/06/21 12:48 83 127/71 03/06/21 12:47 78 96 Intake and Output 03/06/21 03/07/21 03/07/21 23:59 07:59 15:59 Intake Total 2154.167 Output Total 400 Balance 1754.167 Intake: IV 2154.167 Lactated Ringers 1,000 ml 854.167 @ 125 mls/hr IV DIRECT [facility] Rx#:[id number] Output: Urine 400 - Exam Breasts: Present: normal Cardiovascular: Present: Regular rate Lungs: Present: Normal air movement Abdomen: Present: normal appearance, soft Vulva: both: normal Uterus: Present: normal, firm. Absent: bogginess, tenderness Extremities: Present: normal Incision: Present: normal, dry, intact - Labs Labs: Abnormal lab results 03/06/21 03/07/21 Range/Units 19:00 07:03 RBC 3.55 L (3.65-5.03) M/mm3 MCH 34 H (28-32) pg MCHC 35 H (30-34) % Plt Count 139 L (140-440) K/mm3 Lactate Dehydrogenase 267 H (91-180) units/L
[2021-03-07] MEDS ORDERED: MAGNESIUM HYDROXIDE (MOM) ORAL LIQD UDC PO PRN (08:41)
[2021-03-07] MEDS ORDERED: D5W/LACTATED RINGERS 1,000 ML IV SCH (08:41)
[2021-03-07] MEDS ORDERED: OXYTOCIN DRIP 30 UNITS/500 ML BAG IV SCH (08:41)
[2021-03-07] MEDS ORDERED: WITCH HAZEL/ GLYCERIN PAD TP PRN (08:41)
[2021-03-07] MEDS ORDERED: LANOLIN/ZINC/DIMETHICONE (LANSINOH) 7 GM TP PRN (08:41)
[2021-03-07] MEDS ORDERED: HYDROCORTISONE 25 MG RECTAL SUPP PR PRN (08:41)
[2021-03-07] MEDS ORDERED: HYDROmorphone 1 MG/1 ML INJ IV PRN (08:41)
[2021-03-07] MEDS ORDERED: PROMETHAZINE 25 MG RECT SUPP PR PRN (08:41)
[2021-03-07] MEDS ORDERED: NALOXONE 0.4 MG/1 ML INJ IV PRN (08:41)
[2021-03-07] MEDS ORDERED: SIMETHICONE 80 MG CHEW TAB PO PRN (08:41)
[2021-03-07] MEDS ORDERED: IBUPROFEN 600 MG TAB PO ONE (08:46)
[2021-03-07] MEDS ORDERED: IBUPROFEN 600 MG TAB PO PRN (09:38)
[2021-03-07] MEDS: ceFAZolin/NS 1 GM/50 ML 1 GM/50 ML BAG IV SCH ×2 (10:47→17:36)
[2021-03-07] MEDS: ACETAMINOPHEN 500 MG TAB PO SCH ×2 (10:50→17:36)
[2021-03-07] MEDS: HYDROmorphone 1 MG/1 ML INJ IV PRN ×2 (11:22→21:31)
[2021-03-07] MEDS ORDERED: KETOROLAC 30 MG/1 ML INJ IV SCH (13:00)
[2021-03-07] MEDS ORDERED: NalbUPHINE 10 MG/1 ML INJ IV PRN (13:28)
[2021-03-07] MEDS ORDERED: IBUPROFEN 800 MG TAB PO SCH (14:00)
[2021-03-07 16:55] LABS: Hematocrit 31.2 % (30.3-42.9)
[2021-03-07] MEDS: IBUPROFEN 800 MG TAB PO SCH ×2 (17:01→21:27)
[2021-03-07] MEDS: PREGABALIN 50 MG CAP PO SCH (23:21)
[2021-03-08] MEDS: ACETAMINOPHEN 500 MG TAB PO SCH (02:36)
[2021-03-08] MEDS ORDERED: IBUPROFEN 800 MG TAB PO PRN (05:05)
[2021-03-08] MEDS ORDERED: IBUPROFEN 600 MG TAB PO PRN (05:05)
[2021-03-08] MEDS: oxyCODONE /ACETAMINOPHEN 5-325MG TAB PO PRN ×3 (05:26→19:11)
[2021-03-08] MEDS ORDERED: TETANUS,DIPH,PERTUSS(ACELL) VACCINE 0.5 ML SYRINGE IM ONE (06:00)
--- NOTE | 2021-03-08 07:47 | Progress Note ---
Assessment and Plan VSSAF and postop H&H stable. Pt reports ambulating, voiding, and eating without difficulty. POC and precautions reviewed with pt. Questions encouraged and addressed. Pt verbalizes understanding and agrees to POC. - Patient Problems (1) (normal spontaneous vaginal delivery) Current Visit: Yes Status: Acute (2) delivery indicated due to breech presentation Current Visit: Yes Status: Acute Plan to address problem: continue postoperative pathway Subjective - Subjective Date of service: 03/08/21 Principal diagnosis: POD #1, CS delivered baby b, baby a Patient reports: appetite normal, voiding normally, pain well controlled, ambulating normally [place]: doing well Objective - Vital Signs Latest vital signs: Vital Signs Temp Pulse Resp BP BP Pulse Ox Pulse Ox 03/08/21 06:26 18 03/08/21 05:26 18 03/08/21 03:36 18 03/08/21 02:36 18 03/08/21 00:36 98.5 F 65 20 118/50 97 03/07/21 22:01 18 03/07/21 21:31 18 03/07/21 20:00 100 03/07/21 17:07 97.9 F 63 20 111/69 03/07/21 12:45 98.1 F 59 L 20 134/64 03/07/21 09:30 98.5 F 58 L 17 137/85 100 100 03/07/21 09:03 70 99 03/07/21 08:58 72 94 03/07/21 08:53 62 99 03/07/21 08:51 65 141/69 91 03/07/21 08:48 69 99 03/07/21 08:45 82 92 03/07/21 08:43 67 99 03/07/21 08:38 70 99 03/07/21 08:35 83 135/75 03/07/21 08:33 67 100 03/07/21 08:28 68 99 03/07/21 08:27 100 03/07/21 08:23 68 100 03/07/21 08:20 75 135/65 03/07/21 08:18 73 100 03/07/21 08:13 65 100 03/07/21 08:10 64 137/64 03/07/21 08:08 65 99 03/07/21 08:05 64 161/76 03/07/21 08:03 65 97 03/07/21 07:58 68 100 03/07/21 07:53 67 99 03/07/21 07:48 66 100 Intake and Output 03/07/21 03/07/21 03/08/21 15:59 23:59 07:59 Intake Total 370 560 Output Total 100 1400 Balance 270 -840 Intake: IV 50 ANCEF/NS 1 GM/50 ML 1 gm 50 In 50 ml @ 100 mls/hr IV Q8H [facility] Rx#:[id number] Oral 320 560 Output: Urine 100 1400 Indwelling Catheter 100 900 Void 500 Other: Total, Intake Amount 320 240 Total, Output Amount 100 500 # Voids Void 0 1 - Exam Breasts: Present: normal Cardiovascular: Present: Regular rate Lungs: Present: Normal air movement Abdomen: Present: normal appearance, soft Vulva: both: normal Uterus: Present: normal, firm Extremities: Present: normal Incision: Present: normal, dry, intact Comments: scant lochia
[2021-03-08] MEDS: IBUPROFEN 800 MG TAB PO SCH ×3 (08:38→22:18)
--- NOTE | 2021-03-08 15:50 | Post Anesthesia Evaluation ---
- Post Anesthesia Evaluation Patient Participated: Yes Airway Patent: Yes Stable Respiratory Function: Yes Nausea/Vomiting: No Temp > 96.8F: Yes Pain Manageable: Yes Adequeate Hydration: Yes Anesthesia Complications: No Block Receding Appropriately: Yes
[2021-03-08] MEDS: diphenhydrAMINE 25 MG CAP PO PRN ×2 (16:04→20:58)
[2021-03-09] MEDS: PREGABALIN 50 MG CAP PO SCH (00:38)
[2021-03-09] MEDS: IBUPROFEN 800 MG TAB PO SCH ×2 (05:52→11:35)
--- NOTE | 2021-03-09 08:43 | Discharge Summary ---
Providers - Providers Date of Admission: 03/06/21 16:07 Date of discharge: 03/09/21 Attending physician: CRISTOPHER ROJAS 03/07/21 08:41 Consult to Electrician Chief [CONS] Routine Reason For Exam: Primary care physician: CRISTOPHER ROJAS Hospitalization Reason for admission: IOL Condition: Stable Pertinent studies: H&H .2, asymptomatic anemia Procedures: and twin delivery Hospital course: Uncomplicated and for twin delivery and course Disposition: 01 HOME / SELF CARE / HOMELESS Final Discharge Diagnosis (Prints w/discharge instructions): Twin Delivery, and Time spent for discharge: 15 - Discharge Diagnoses (1) Dichorionic diamniotic twin gestation Status: Acute Qualifiers: Trimester: third trimester Qualified Code(s): O30.043 - Twin , dichorionic/diamniotic, third trimester (2) delivery indicated due to breech presentation Status: Acute (3) (normal spontaneous vaginal delivery) Status: Acute Core Measure Documentation - Palliative Care Palliative Care/ Comfort Measures: Not Applicable - Core Measures Any of the following diagnoses?: none Exam - Constitutional Vitals: Temp Pulse Resp BP Pulse Ox 98.5 F 65 18 109/56 100 03/09/21 00:29 03/09/21 00:29 03/09/21 06:52 03/09/21 00:29 03/09/21 00:29 General appearance: Present: no acute distress, well-nourished - EENT Eyes: Present: PERRL ENT: hearing intact, clear oral mucosa - Neck Neck: Present: supple, normal ROM - Respiratory Respiratory effort: normal Respiratory: bilateral: CTA - Cardiovascular Heart Sounds: Present: S1 & S2. Absent: rub, click - Extremities Extremities: pulses symmetrical, No edema Peripheral Pulses: within normal limits - Abdominal General gastrointestinal: Present: soft, non-tender, non-distended, normal bowel sounds Female genitourinary: Present: normal - Integumentary Integumentary: Present: clear, warm, dry - Musculoskeletal Musculoskeletal: gait normal, strength equal bilaterally - Psychiatric Psychiatric: appropriate mood/affect, intact judgment & insight - Neurologic Neurologic: CNII-XII intact, moves all extremities - Additional findings Additional findings: Lochia scant, fundus firm, incision healing and edges approximated Plan Activity: advance as tolerated Diet: regular Wound: open to air, keep clean and dry Follow up with: CRISTOPHER ROJAS MD [Primary Care Provider] - 7 Days (Congratulations!! Please call [phone] to schedule your incision check and circumcisions in 1 week. Bring EMLA cream to your sons' appointments and wait for instructions. Call the office with any questions or concerns. ) Prescriptions: Docusate Sodium [Colace] 100 mg PO BID PRN #30 capsule PRN Reason: Constipation Lidocain2.5%/Prilocai2.5% [Emla] 5 gm TP ONCE #1 tube Ferrous Sulfate [Feosol 325 MG tab] 325 mg PO DAILY #90 tablet Ibuprofen [Motrin 800 MG tab] 800 mg PO TID PRN #30 tablet PRN Reason: Pain oxyCODONE /ACETAMINOPHEN [Percocet 5/325 mg] 1 - 2 tab PO Q6HR PRN #20 tablet PRN Reason: Pain
[2021-03-09 12:15] VITALS: BP 127/72
== END 2021-03-09 15:45 | disposition home or self-care (01) | DRG 766 ==
LOC: TRG 11:50 → APU 11:52 → TRG 16:07 → LD 16:07 → OB 03-07 09:17
PROVIDERS: ADMIT Obstetrics & Gynecology; ATTEND Obstetrics & Gynecology
PROC: 10E0XZZ Delivery of Products of Conception, External Approach (ICD-10-PCS; principal; 2021-03-07)
PROC: 10D00Z1 Extraction of Products of Conception, Low, Open Approach (ICD-10-PCS; 2021-03-07)
PROC: 3E0234Z Introduction of Serum, Toxoid and Vaccine into Muscle, Percutaneous Approach (ICD-10-PCS; 2021-03-08)
DX: O30.043 Twin pregnancy, dichorionic/diamniotic, third trimester (principal); Z3A.38 38 weeks gestation of pregnancy; Z20.822 Contact with and (suspected) exposure to COVID-19; Z37.2 Twins, both liveborn; O99.824 Streptococcus B carrier state complicating childbirth; O69.81X2 Labor and delivery complicated by cord around neck, without compression, fetus 2; Z23 Encounter for immunization; O32.8XX2 Maternal care for other malpresentation of fetus, fetus 2; Z83.3 Family history of diabetes mellitus; Z82.49 Family history of ischemic heart disease and other diseases of the circulatory system; O90.81 Anemia of the puerperium
CPT/HCPCS: 36415; 76819; 82565; 83615; 84450; 84460; 84550; 85014; 85018; 85027; 86592; 86850; 86900; 86901; 88307; 99211; G0378; A6250; G0463; J0290; J0690; J1100; J1170; J1885; J2590; J2765; J7120; U0003